=== PATIENT | female | born 1950 | race Caucasian/White ===

== ENCOUNTER 2016-06-12 06:55 | Inpatient (IN) | payer MEDICARE, OTHER ==
[2016-06-05 15:57] LABS: BASOPHILS 0.5 %; BASOPHILS ABSOLUTE 0.04 10/3/uL (0.0-0.16); EOSINOPHILS 2.9 %; EOSINOPHILS ABSOLUTE 0.23 10/3/uL (0.0-0.53); HEMATOCRIT 42.4 % (36.0-48.0); IMMATURE GRANULOCYTES 0.2 %; IMMATURE GRANULOCYTES ABSOLUTE 0.02 10/3/uL (0.0-0.11); LYMPHOCYTES 20.5 %; LYMPHOCYTES ABSOLUTE 1.65 10/3/uL (0.67-4.30); MANUAL DIFF NO %; MEAN CORPUS HGB CONC 35.4 g/dL (32.0-36.0); MEAN CORPUSCULAR HEMOGLOB 29.6 pg (26.0-34.0); MEAN CORPUSCULAR VOLUME 83.8 fL (80-100); MEAN PLATELET VOLUME 11.6 fL (9.2-13.0); MONOCYTES 10.7 %; MONOCYTES ABSOLUTE 0.86 10/3/uL (0.21-1.20); NEUTROPHILS 65.2 %; NEUTROPHILS ABSOLUTE 5.25 10/3/uL (2.02-8.40); PLATELET COUNT 283 10/3/uL (150-400); RBC DISTRIBUTION WIDTH 12.4 % (12.0-16.0); RED CELL COUNT 5.06 10/6/uL (4.0-5.6); WHITE BLOOD CELLS 8.1 10/3/uL (4.5-10.5)
[2016-06-05 16:08] LABS: INTERNATIONAL NORMAL RATI 1.1 UNITS (-); PARTIAL THROMBO TIME 38.1 SEC (22.5-37.2); PROTIME (NOT ORD) 13.6 SEC (12.0-14.5)
[2016-06-05 16:12] LABS: A/G RATIO 1.1 (0.7-1.9); ALBUMIN 3.9 G/DL (3.5-5.0); ALKALINE PHOSPHATASE 103 U/L (45-117); ASCORBIC ACID (UR NOT ORDER) NEG (NEG); BILIRUBIN, URINE NEGATIVE (NEG); BUN (BLOOD UREA NITROGEN) 13 MG/DL (6-23); CALCIUM, SERUM 9.2 MG/DL (8.5-10.4); CHLORIDE, SERUM 105 MMOL/L (96-112); CO2 (CARBON DIOXIDE) 27 MMOL/L (24-34); CREATININE 0.84 MG/DL (0.55-1.02); GFR AFRICAN AMERICAN 84 ML/MIN (>=60); GFR NON AFRICAN AMERICAN 72 ML/MIN (>=60); GLOBULIN 3.6 G/DL (2.5-4.1); GLUCOSE, SERUM 76 MG/DL (60-99); KETONE, URINE NEGATIVE (NEG); LEUKOCYTE ESTERASE(NOT OR NEG (NEG); POTASSIUM, SERUM 3.6 MMOL/L (3.5-5.3); SGOT(AST) 15 U/L (5-40); SGPT(ALT) 21 U/L (5-65); SODIUM, SERUM 142 MMOL/L (135-148); TOTAL BILIRUBIN 0.4 MG/DL (0-1.2); TOTAL PROTEIN 7.5 G/DL (6.0-8.5); WBC (NOT ORDERED) (RFLEX) < 1 (0-5)
--- NOTE | ~2016-06-12 | OP ---
Record Of Operation [facility] [address] [place]. [address] NAME: LINDA HOLDEN : 50 STATUS : ADM IN PAT#: [id number] AGE: 66 ADM/REG DATE : 06/12/16 MR#: [id number] REPORT SERV DATE: 06/12/16 DICTATED BY: CHAMP ESPANA DATE: 06/12/16 REPORT STATUS : Draft TRANSCRIBED BY: MODL DATE: 06/12/16 DATE OF PROCEDURE: PREOPERATIVE DIAGNOSIS: Right recurrent subscapularis failure. POSTOPERATIVE DIAGNOSIS: Right recurrent subscapularis failure, plus glenoid loosening. PROCEDURE: Right revision total shoulder arthroplasty to reverse shoulder arthroplasty. SURGEON: Champ Espana M.D. COMPLICATIONS: None. ANESTHESIA: General endotracheal with regional block per Anesthesia. ESTIMATED BLOOD LOSS: 200. IMPLANTS: Saranya Anatomic with BF glenosphere. INDICATIONS: This 66-year-old female is well known to me. She did very well after a total shoulder arthroplasty initially, but fell over a baby gate suffering a subscap rupture. We scoped her shoulder and tested the glenoid at that time and it did not appear to be loose. She underwent a subscap repair, but this subsequently underwent low energy failure. She was having persistent symptoms and wished to proceed with operative intervention for revision to reverse. DESCRIPTION OF PROCEDURE: The patient was induced in the supine position. She was taken to the beach-chair position with care to maintain the cervical lordosis. A time-out protocol was enforced and Ancef was administered. The right upper extremity was prepped and draped in standard surgical fashion. A time-out protocol was enforced and Ancef was administered. We utilized the old deltopectoral approach. We found the scarred altered planes of the deltopectoral interval. This was dissected with the Bovie. Subperiosteal dissection was carried out, under the deltoid there was copious scar, there was a sheet of scar all around the humerus, and there was a sheet of scar over where the subscap would be, we dissected that with the Bovie, and placed tacking sutures with Ethibond. The actual subscap tendon appeared to be a centimeter or two retracted from the scar remnant. We subperiosteally released the very thickened and tight joint, and dislocated it. We removed the humeral head and removed the fibrinous scar tissue from around it. We took cultures here. This was an anatomic press fit stem and it was quite well fixed. We backslapped it a few times and it appeared to be quite fixed. We placed a Fukuda and then dissected anteriorly the scar. We placed a Hohmann on the glenoid and it easily came out, surprisingly easily, this may have been a loose glenoid. We Record Of Operation [address] [place]. [address] NAME: LINDA HOLDEN : 50 STATUS : ADM IN PAT#: [id number] AGE: 66 ADM/REG DATE : 06/12/16 MR#: [id number] REPORT SERV DATE: 06/12/16 DICTATED BY: CHAMP ESPANA DATE: 06/12/16 REPORT STATUS : Draft TRANSCRIBED BY: WILTON DATE: 06/12/16 removed all the cement possible and ascertained the glenoid bone stock. We were able to get a 15 mm trabecular metal base plate drilled with good fixation. We sent some scar from the glenoid for pathology for white count per high-power field, and there was no evidence of infection. We palpated the axillary nerve and protect it while performing releases around the glenoid. We then impacted a 36 mm glenosphere. We had placed a 42 and a 36 mm screw with excellent fixation prior to this. We then did at first a provisional reduction of the Dillon of the Saranya Anatomical 0 base plate. I felt this was a little bit too tight, so, we began osteotoming around the proximal stem, it turned out, this was quite well fixed. We made about 2 cm of a door of an episiotomy on the humerus and it was still well fixed distally. I felt this would be disadvantageous, so, we went back and trialed again a 0 and with an osteotome we were able to get it back in and that actually reduced nicely once in the concavity, so, a 0 Anatomic onlay base plate was impacted and implanted. We used 18-gauge wire to circumferentially repair the proximal humerus. Hemovac drain was placed. The subscap was repaired and neutral, and we irrigated copiously with pulsatile lavage and Tranexamic acid. The wounds were closed in layers. The patient tolerated the procedure well and taken to the PACU in stable condition. POSTOPERATIVE PLAN: Elbow range of motion, pendulums only, revision reverse protocol. BSS/MODL Champ Espana M.D. / [id number] CC: Champ Espana M.D.
[~2016-06-12 06:55] MED LIST: ADVIL PO; ALLEGRA180 PO; ASA5GR PO; C25 PO; C5 PO; COREG12 PO; KLONO5 PO; LAMICTAL10 PO; LORT7 PO; LORTAB10 PO; MOBIC15 MG PO; PCET PO; PERCOCET1 TA2 PO; PR25 PO; PRAV10 PO; PROZAC40 MG PO; SENTAB PO; T PO; ULTRAM50 PO; VENTOLIN HFA INH; ZETIA PO; [UNRECOGNIZED DRUG - CODE] PO; [UNRECOGNIZED DRUG - OTHER] PO
[2016-06-13 04:58] LABS: HEMATOCRIT 35.3 % (36.0-48.0)
[2016-06-13 05:04] LABS: BUN (BLOOD UREA NITROGEN) 12 MG/DL (6-23); CALCIUM, SERUM 8.2 MG/DL (8.5-10.4); CHLORIDE, SERUM 104 MMOL/L (96-112); CO2 (CARBON DIOXIDE) 25 MMOL/L (24-34); CREATININE 0.81 MG/DL (0.55-1.02); GFR AFRICAN AMERICAN 88 ML/MIN (>=60); GFR NON AFRICAN AMERICAN 76 ML/MIN (>=60); GLUCOSE, SERUM 106 MG/DL (60-99); POTASSIUM, SERUM 4.1 MMOL/L (3.5-5.3); SODIUM, SERUM 136 MMOL/L (135-148)
[2016-06-13] MEDS ORDERED: PERCOCET 7.5/321 TAB PO (11:10)
[2016-06-13] MEDS ORDERED: ASA5GR PO (11:10)
[2016-06-13] MEDS ORDERED: PR25 PO (11:10)
== END 2016-06-13 11:55 | disposition home or self-care (01) | DRG 483 ==
LOC: SDC/OF 06:55 → PACU 14:36 → 3SO 16:28
PROVIDERS: Orthopaedic Surgery Sports Medicine
PROC: 0RPJ0JZ Removal of Synthetic Substitute from Right Shoulder Joint, Open Approach (ICD-10-PCS; 2016-06-12)
PROC: 0RRJ00Z Replacement of Right Shoulder Joint with Reverse Ball and Socket Synthetic Substitute, Open Approach (ICD-10-PCS; principal; 2016-06-12 09:15)
DX: T84.098A Other mechanical complication of other internal joint prosthesis, initial encounter (principal); F32.9 Major depressive disorder, single episode, unspecified; E78.5 Hyperlipidemia, unspecified; F41.9 Anxiety disorder, unspecified
CPT/HCPCS: 36415; 73030-RT; 80048; 80053; 81001; 85014; 85018; 85025; 85610; 85730; 86850; 86900; 86901; 87015; 87070; 87075; 87102; 87116; 87205; 87641; 88300; 88304; 88311; 88331; 93005; 97161-GP; A9270-GY; C1713; C1776; J0690; J2250; J2270; J2370; J2405; J2710; J2795; J3010